=== PATIENT | male | born 1960 | race Caucasian/White ===

== ENCOUNTER 2017-05-20 20:58 | Observation (INO) | payer MEDICAID ==
[~2017-05-20] VITALS: Ht 170.2 cm; Wt 65.0 kg
[2017-05-20 22:56] LABS: INR 1.1; PROTHROMBIN TIME 11.8 sec (9.4-11.6)
[2017-05-20 23:01] LABS: HEMOGLOBIN. 9.7 g/dL (14.0-18.0); MEAN CORPUSCULAR HEMOGLOBIN 31.9 pg (28.0-32.0); MEAN CORPUSCULAR VOLUME 92.7 fL (80.0-94.0); MEAN PLATELET VOLUME 7.9 fl (7.4-10.4); PLATELET 273 x1000/uL (130-400); RED BLOOD CELL COUNT 3.03 mill/uL (4.7-6.1); RED CELL DISTRIBUTION WIDTH 19.2 % (11.6-14.6)
[2017-05-20 23:05] LABS: CHLORIDE 104 mEq/L (98-107); TROPONIN I < 0.02 ng/mL (0.00-0.04)
[2017-05-20 23:33] LABS: PLATELET ESTIMATE NORMAL
[2017-05-21 00:18] LABS: CLARITY URINE CLEAR (CLEAR); COLOR URINE YELLOW (YELLOW); KETONES URINE NEGATIVE (NEGATIVE); LEUKOCYTE ESTERASE URINE NEGATIVE (NEGATIVE); NITRITE URINE NEGATIVE (NEGATIVE); OCCULT BLOOD URINE NEGATIVE (NEGATIVE); PROTEIN URINE NEGATIVE (NEGATIVE); SPECIFIC GRAVITY URINE 1.012 (1.005-1.030); UROBILINOGEN URINE 0.2 E.U./dL (0.2-1.0)
[2017-05-21] MEDS ORDERED: AZITHROMYCIN 500 MG in DEXT 5% WATER 250 ML IV ONE (00:30)
[2017-05-21] MEDS ORDERED: CEFTRIAXONE 1 G PREMIX 50 ML IV ONE (00:30)
[2017-05-21 05:45] VITALS: BP 137/90
[2017-05-21] MEDS ORDERED: KCL 10MEQ/50ML PREMIX 50 ML IV ONE (06:15)
[2017-05-21 06:55] VITALS: BP 139/70
[2017-05-21 08:00] VITALS: BP 122/78
[2017-05-21 08:54] LABS: HEMATOCRIT 31.2 % (42.0-52.0); HEMOGLOBIN 10.6 g/dL (14.0-18.0); MEAN CORPUSCULAR HEMOGLOBIN 31.7 pg (28.0-32.0); MEAN CORPUSCULAR VOLUME 93.5 fL (80.0-94.0); PLATELET 289 x1000/uL (130-400); RED BLOOD CELL COUNT 3.33 mill/uL (4.7-6.1); RED CELL DISTRIBUTION WIDTH 19.3 % (11.6-14.6)
[2017-05-21] MEDS ORDERED: POTASSIUM CHLORIDE 10MEQ TABLET SR PO SCH (09:00)
[2017-05-21] MEDS ORDERED: FUROSEMIDE 40MG/4ML VIAL IVP SCH (09:00)
[2017-05-21 09:22] LABS: CHLORIDE 103 mEq/L (98-107)
[2017-05-21] MEDS: ENOXAPARIN 40MG/0.4ML SYR SUBCUT SCH (09:31)
[2017-05-21] MEDS ORDERED: SUCR1TAB30 PO (10:32)
[2017-05-21] MEDS ORDERED: CLOT15CR5 TP (10:32)
[2017-05-21] MEDS ORDERED: PANT40TA4 PO (10:32)
[2017-05-21] MEDS ORDERED: LISI-604 PO (10:32)
[2017-05-21] MEDS ORDERED: FAMO20TA8 PO (10:32)
[2017-05-21] MEDS ORDERED: METF10002 PO (10:32)
[2017-05-21] MEDS ORDERED: GABA800T PO (10:32)
[2017-05-21] MEDS ORDERED: TRAM50TA3 PO (10:32)
[2017-05-21] MEDS ORDERED: HYDR-4001 PO (10:34)
[2017-05-21] MEDS ORDERED: MEDICATION NOT ON FORMULARY EA (Metformin Hcl 1 TAB) PO SCH (10:45)
[2017-05-21] MEDS ORDERED: MEDICATION NOT ON FORMULARY EA (Gabapentin (Neurontin) 1 TAB) PO SCH (10:45)
[2017-05-21] MEDS ORDERED: PANTOPRAZOLE 40MG DR TABLET PO SCH (10:49)
[2017-05-21] MEDS ORDERED: SODIUM CHLORIDE 45ML SPRAY NS PRN (11:00)
[2017-05-21] MEDS ORDERED: DEXTROSE 50% WATER 50ML SYRINGE IV PRN (11:00)
[2017-05-21] MEDS: IPRATROPIUM/ALBUTEROL 0.5-3(2.5)MG/3ML NEB HHN SCH ×4 (11:12→23:26)
[2017-05-21] MEDS ORDERED: OMEPRAZOLE 20MG CAPSULE EXTENDED RELEASE PO NR (11:15)
[2017-05-21] MEDS ORDERED: POTASSIUM CHLORIDE 20MEQ TABLET SR PO NR (11:15)
[2017-05-21 11:22] LABS: CLARITY URINE CLEAR (CLEAR); COLOR URINE YELLOW (YELLOW); KETONES URINE NEGATIVE (NEGATIVE); LEUKOCYTE ESTERASE URINE NEGATIVE (NEGATIVE); NITRITE URINE NEGATIVE (NEGATIVE); OCCULT BLOOD URINE NEGATIVE (NEGATIVE); PH URINE 6.5 (4.5-8.0); PROTEIN URINE NEGATIVE (NEGATIVE); SPECIFIC GRAVITY URINE 1.008 (1.005-1.030); UROBILINOGEN URINE 0.2 E.U./dL (0.2-1.0)
[2017-05-21] MEDS: BLOOD SUGAR DIAGNOSTIC STRIP TEST SCH ×3 (11:56→20:52)
[2017-05-21] MEDS: INSULIN LISPRO 100 UNITS/ML SUBCUT SCH ×3 (11:57→20:52)
[2017-05-21 12:00] VITALS: BP 110/63
[2017-05-21] MEDS: METFORMIN HCL 500MG TABLET PO SCH ×2 (12:12→16:15)
[2017-05-21] MEDS: SUCRALFATE 1G TABLET PO SCH ×3 (12:14→20:45)
[2017-05-21 15:29] LABS: *AMPHETAMINES SCREEN URINE NEGATIVE (NEGATIVE); *BARBITURATES SCREEN URINE NEGATIVE (NEGATIVE); *BENZODIAZEPINES SCREEN URINE NEGATIVE (NEGATIVE); *COCAINE SCREEN URINE NEGATIVE (NEGATIVE); CANNABINOID URINE SCREEN NEGATIVE (NEGATIVE); METHADONE URINE SCREEN NEGATIVE (NEGATIVE); OPIATES URINE SCREEN NEGATIVE (NEGATIVE); PHENCYCLIDINE URINE SCREEN NEGATIVE (NEGATIVE)
[2017-05-21 16:00] VITALS: BP 125/96
[2017-05-21] MEDS: HYDROCODONE/ACETAMINOPHEN 5/325MG TABLET PO PRN ×2 (16:13→20:45)
[2017-05-21] MEDS: CLOTRIMAZOLE/BETAMETHASONE 1/0.05% CREAM 15GM TOP SCH (16:14)
[2017-05-21] MEDS: FAMOTIDINE 20MG TABLET PO SCH (17:18)
[2017-05-21 20:00] VITALS: BP 106/71
[2017-05-21] MEDS: CARVEDILOL 3.125 MG TABLET PO SCH (20:44)
[2017-05-21] MEDS ORDERED: MAGNESIUM/ALUMINUM HYDROXIDE/SIMETHICONE 30ML UDC PO PRN (22:00)
[2017-05-22] VITALS: BP 118/74
[2017-05-22] MEDS ORDERED: CEFTRIAXONE 1 G PREMIX 50 ML IV SCH (01:30)
[2017-05-22] MEDS ORDERED: AZITHROMYCIN 500 MG in DEXT 5% WATER 250 ML IV SCH (02:30)
[2017-05-22] MEDS: HYDROCODONE/ACETAMINOPHEN 5/325MG TABLET PO PRN (02:54)
[2017-05-22] MEDS: IPRATROPIUM/ALBUTEROL 0.5-3(2.5)MG/3ML NEB HHN SCH ×5 (03:19→21:01)
[2017-05-22 04:00] VITALS: BP 118/68
[2017-05-22] MEDS: SUCRALFATE 1G TABLET PO SCH ×4 (06:04→21:27)
[2017-05-22] MEDS: OMEPRAZOLE 20MG CAPSULE EXTENDED RELEASE PO SCH (06:04)
[2017-05-22] MEDS: INSULIN LISPRO 100 UNITS/ML SUBCUT SCH ×4 (06:09→20:13)
[2017-05-22] MEDS: BLOOD SUGAR DIAGNOSTIC STRIP TEST SCH ×4 (06:09→20:13)
[2017-05-22 06:55] LABS: HEMATOCRIT. 30.9 % (42.0-52.0); HEMOGLOBIN. 10.5 g/dL (14.0-18.0); MEAN CORPUSCULAR HEMOGLOBIN 31.8 pg (28.0-32.0); MEAN CORPUSCULAR VOLUME 93.2 fL (80.0-94.0); RED BLOOD CELL COUNT 3.31 mill/uL (4.7-6.1)
[2017-05-22 08:00] VITALS: BP 140/86
[2017-05-22 08:12] LABS: CHLORIDE 100 mEq/L (98-107)
[2017-05-22] MEDS: ENOXAPARIN 40MG/0.4ML SYR SUBCUT SCH (09:37)
[2017-05-22] MEDS: METFORMIN HCL 500MG TABLET PO SCH ×2 (09:37→17:44)
[2017-05-22] MEDS: CARVEDILOL 3.125 MG TABLET PO SCH ×2 (09:38→21:00)
[2017-05-22] MEDS: LISINOPRIL 20MG TABLET PO SCH (09:38)
[2017-05-22] MEDS: CLOTRIMAZOLE/BETAMETHASONE 1/0.05% CREAM 15GM TOP SCH ×2 (09:39→17:44)
[2017-05-22] MEDS ORDERED: MAGNESIUM 2 G PREMIX 50 ML IV NR (10:00)
[2017-05-22] MEDS ORDERED: MAGNESIUM 4 G PREMIX 100 ML IV NR (10:30)
[2017-05-22 12:00] VITALS: BP 122/80
[2017-05-22 14:08] LABS: PLATELET ESTIMATE NORMAL
[2017-05-22 16:00] VITALS: BP 93/61
[2017-05-22] MEDS: FAMOTIDINE 20MG TABLET PO SCH (17:44)
[2017-05-22 20:00] VITALS: BP 98/61
[2017-05-23] VITALS: BP 115/76
[2017-05-23] MEDS: IPRATROPIUM/ALBUTEROL 0.5-3(2.5)MG/3ML NEB HHN SCH ×5 (00:39→15:23)
[2017-05-23 04:00] VITALS: BP 122/76
[2017-05-23] MEDS: BLOOD SUGAR DIAGNOSTIC STRIP TEST SCH ×3 (06:31→17:40)
[2017-05-23] MEDS: INSULIN LISPRO 100 UNITS/ML SUBCUT SCH ×3 (06:40→17:15)
[2017-05-23] MEDS: SUCRALFATE 1G TABLET PO SCH ×3 (06:51→17:44)
[2017-05-23] MEDS: OMEPRAZOLE 20MG CAPSULE EXTENDED RELEASE PO SCH (06:51)
[2017-05-23 08:00] VITALS: BP 125/80
[2017-05-23] MEDS: HYDROCODONE/ACETAMINOPHEN 5/325MG TABLET PO PRN (10:08)
[2017-05-23] MEDS: LISINOPRIL 20MG TABLET PO SCH (10:09)
[2017-05-23] MEDS: CARVEDILOL 3.125 MG TABLET PO SCH (10:09)
[2017-05-23] MEDS: METFORMIN HCL 500MG TABLET PO SCH ×2 (10:09→17:44)
[2017-05-23] MEDS: ENOXAPARIN 40MG/0.4ML SYR SUBCUT SCH (10:13)
[2017-05-23] MEDS: CLOTRIMAZOLE/BETAMETHASONE 1/0.05% CREAM 15GM TOP SCH ×2 (10:13→17:45)
[2017-05-23 12:00] VITALS: BP 93/62
[2017-05-23 16:00] VITALS: BP 89/56
[2017-05-23] MEDS: FAMOTIDINE 20MG TABLET PO SCH (17:44)
[2017-05-23 18:16] VITALS: BP 89/56
== END 2017-05-23 19:01 | disposition home or self-care (01) ==
LOC: ER 20:58 → 6EST 05-21 01:21 → INTOOBSV 05-21 01:21 → ENRESERV 05-21 03:21 → 5WST 05-21 08:46
PROVIDERS: ADMIT Internal Medicine Geriatric Medicine; ATTEND Internal Medicine Geriatric Medicine
DX: K70.30 Alcoholic cirrhosis of liver without ascites (principal); N28.9 Disorder of kidney and ureter, unspecified; I11.0 Hypertensive heart disease with heart failure; I50.42 Chronic combined systolic (congestive) and diastolic (congestive) heart failure; D63.8 Anemia in other chronic diseases classified elsewhere; E83.42 Hypomagnesemia; E11.9 Type 2 diabetes mellitus without complications; J44.9 Chronic obstructive pulmonary disease, unspecified; K21.9 Gastro-esophageal reflux disease without esophagitis; F10.20 Alcohol dependence, uncomplicated; Z87.19 Personal history of other diseases of the digestive system; Z82.49 Family history of ischemic heart disease and other diseases of the circulatory system; Z83.3 Family history of diabetes mellitus; Z79.899 Other long term (current) drug therapy; Z86.718 Personal history of other venous thrombosis and embolism
CPT/HCPCS: 36415; 71045; 80048; 80053; 80305; 81003; 82962; 83036; 83605; 83735; 83880; 84484; 85025; 85027; 85610; 87040; 87086; 93005; 93306; 93970; 94640; 94664; 96365; 96366; 96367; 96372; 96375; 96376; 97161; 99285; G0378; J0456; J0696; J1650; J1940; J3475; J7050; J7620; J7060